=== PATIENT | male | born 1960 | race Asian ===

== ENCOUNTER 2021-01-12 07:46 | Inpatient (IN) | payer BC, SELFPAY ==
[~2021-01-12] VITALS: Ht 180.3 cm; Wt 93.0 kg
[2021-01-12 07:47] VITALS: BP 161/113
--- NOTE | 2021-01-12 07:56 | NUR ---
Dr. Martinez at pt bedside for further evaluation.
[2021-01-12] MEDS ORDERED: FAMOTIDINE 20 MG TAB PO ONE (08:00)
[2021-01-12] MEDS ORDERED: ALUMINUM HYD/MAG/SIMETHICONE 30 ML UDC PO ONE (08:00)
--- NOTE | 2021-01-12 08:01 | NUR ---
EKG AT BEDSIDE.
--- NOTE | 2021-01-12 08:02 | NUR ---
EKG done at pt bedside.
--- NOTE | 2021-01-12 08:03 | NUR ---
PATIENT PRESENTS TO ED WITH C/O EPIGASTRIC PAIN SINCE LAST NIGHT. PT STATES "IT FEELS LIKE SOMETHING IS STUCK". DENIES N/V/D; SKIN IS PINK/WARM/DRY; AAOX4 WITH EVEN AND STEADY GAIT; LUNGS CLEAR BL; HR EVEN AND REGULAR; PT DENIES ANY FEVER, CP, SOB, OR COUGH AT THIS TIME; PATIENT STATES PAIN OF 8/10 AT THIS TIME; VSS; PATIENT POSITIONED FOR COMFORT; HOB ELEVATED; BEDRAILS UP X1; BED DOWN. ER MD MADE AWARE OF PT STATUS. HX: HTN, A FIB NKA
[2021-01-12 08:21] LABS: HEMATOCRIT 44.8 % (36-52); HEMOGLOBIN 15.2 g/dL (12.0-18.0); MEAN CORPUSCULAR HEMOGLOBIN 30 pg (27-31); MEAN CORPUSCULAR HGB CONC 34 g/dL (33-37); MEAN CORPUSCULAR VOLUME 87.4 fL (80-94); PLATELET COUNT (AUTO) 259 K/uL (140-450); RED BLOOD CELL COUNT(AUTO) 5.13 MIL/uL (4.20-6.10); RED CELL DISTRIBUTION WIDTH 14.4 % (11.6-13.7); WHITE BLOOD COUNT (AUTO) 18.4 K/uL (4.8-10.8)
--- NOTE | 2021-01-12 08:49 | NUR ---
US tech at pt bedside.
[2021-01-12] MEDS ORDERED: NACL 0.9% 1,000 ML IV ONE ×2 (08:55→09:55)
[2021-01-12] MEDS ORDERED: MORPHINE SULFATE 4 MG/ML SYR IVP ONE (08:55)
[2021-01-12] MEDS ORDERED: metroNIDAZOLE 500 MG/NS PREMIX 100 ML IV ONE (08:55)
[2021-01-12 09:02] LABS: LYMPHOCYTES % (MANUAL) 7 % (20-46); MONOCYTES % (MANUAL) 6 % (5-12)
[2021-01-12 09:07] LABS: ALBUMIN 4.4 g/dL (3.4-5.0); ANION GAP 13.7 (8-16); CARBON DIOXIDE 27.5 mmol/L (21-32); POTASSIUM 4.2 mmol/L (3.5-5.1); TOTAL BILIRUBIN 1.1 mg/dL (0.0-1.0)
--- NOTE | 2021-01-12 09:09 | NUR ---
plant tech at pt bedside for blood cultures.
[2021-01-12] MEDS ORDERED: cefTRIAXone 1,000 MG VIAL ONE (09:15)
--- NOTE | 2021-01-12 09:23 | NUR ---
Pt taken to CT via rpoornima.
--- NOTE | 2021-01-12 09:38 | NUR ---
PT RETURNED FROM CT
--- NOTE | 2021-01-12 09:55 | NUR ---
PT AMBULATING TO RESTROOM
--- NOTE | 2021-01-12 09:55 | NUR ---
PARTHA SWAB WALKED TO LAB
--- NOTE | 2021-01-12 10:02 | NUR ---
UA SPECIMEN WALKED TO LAB
[2021-01-12 10:07] LABS: APPEARANCE,URINE HAZY (CLEAR); BILIRUBIN,URINE NEGATIVE (NEGATIVE); BLOOD, URINE TRACE-L (NEGATIVE); COLOR,URINE YELLOW (YELLOW); LEUKOCYTE ESTERASE ,URINE NEGATIVE (NEGATIVE); NITRITE, URINE NEGATIVE (NEGATIVE); UGLUCOSE NEGATIVE (NEGATIVE)
[2021-01-12 10:25] LABS: RBC,URINE 0-5 /HPF (0-5); WBC,URINE 0-5 /HPF (0-5)
[2021-01-12] MEDS ORDERED: METO25TE2 PO (10:35)
--- NOTE | 2021-01-12 10:57 | NUR ---
RECEIVED TELEPHONE REPORT FROM ER NURSE. PATIENT IS AAOX4 ON RA. AMBULATORY. CC WITH EPIGASTRIC PAIN. DX WITH ACUTE APPENDICITIS, A FIB WITH RVR. MORPHINE, NS BOLUS AND IV ANTIBIOTICS FLAGYL AND ROCEPHIN GIVEN IN ER. IV TO RIGHT AC 20G. SURGEON DR. BALBUENA ON CONSULT FOR POSSIBLE LAP APPENDECTOMY.
--- NOTE | 2021-01-12 10:59 | NUR ---
Gave report to FARAZ Mares for pending admission. ETA 15 minutes.
--- NOTE | 2021-01-12 11:15 | NUR ---
PATIENT ARRIVED [facility] UNIT BY [facility], VITAL SIGNS TAKEN, MRSA NARES SAMPLE COLLECTED. PATIENT IS AMBULATORY. ORIENTED PATIENT TO THE ROOM, CALL LIGHT AND HOSPITAL ENVIRONMENT. SAFETY MEASURES IN PLACE, WILL CONTINUE TO MONITOR.
[2021-01-12 11:20] VITALS: BP 132/93
[2021-01-12] MEDS ORDERED: MAG SULF 2000 MG/WATER PREMIX 50 ML IV PRN (11:20)
[2021-01-12] MEDS ORDERED: DOCUSATE SODIUM 100 MG GELCAP PO PRN (11:20)
[2021-01-12] MEDS ORDERED: DEXT 5% /NACL 0.9% 1,000 ML IV SCH (11:20)
[2021-01-12] MEDS ORDERED: ONDANSETRON 4 MG/2 ML VIAL IM/IVP PRN (11:20)
[2021-01-12] MEDS ORDERED: SODIUM PHOS / POTASSIUM PHOS 1 PKT PDR PO PRN (11:20)
[2021-01-12] MEDS ORDERED: HYDROcodone/APAP 5/325 MG 1 TAB TAB PO PRN ×2 (11:20→13:45)
[2021-01-12] MEDS ORDERED: MORPHINE SULFATE 2 MG/ML SYR IVP PRN (11:20)
[2021-01-12] MEDS ORDERED: ACETAMINOPHEN 325 MG TAB PO PRN (11:20)
[2021-01-12] MEDS ORDERED: POTASSIUM CHLORIDE 40 MEQ, LIDOCAINE MPF 1% 25 MG in NACL 0.9% 250 ML IV PRN (11:20)
--- NOTE | 2021-01-12 11:23 | NUR ---
Patient will be admitted to care of MARCY WELSH . Admited to TELE. Will go to room 105B. Belongings list completed. Report to FARAZ MARRUFO.
[2021-01-12 11:55] LABS: PHOSPHORUS 3.3 mg/dL (2.5-4.9); THYROID STIMULATING HORMONE 0.67 uIU/mL (0.34-3.74)
[2021-01-12] MEDS: metroNIDAZOLE 500 MG/NS PREMIX 100 ML IV SCH ×2 (13:00→20:51)
[2021-01-12] MEDS ORDERED: LIDOCAINE 1% 500 MG/50 ML VIAL ONE (13:04)
[2021-01-12] MEDS ORDERED: BUPIVACAINE-MPF/EPI 0.25% 30 ML VIAL INJ ONE (13:04)
--- NOTE | 2021-01-12 13:08 | NUR ---
FLAGYL NON GIVEN DUE TO LAST DOSE WAS GIVEN AT 10:29 IN ER.
[2021-01-12] MEDS ORDERED: DILTIAZEM 25 MG/5 ML VIAL IVP PRN (13:10)
[2021-01-12] MEDS ORDERED: RIVA20TA PO (13:13)
--- NOTE | 2021-01-12 13:22 | NUR ---
PATIENT PICKED UP BY THE OR NURSED TO HAVE PROCEDURE LAP APPENDECTOMY UNDER DR. BALBUENA. WILL FOLLOW UP.
[2021-01-12] MEDS ORDERED: fentaNYL citrate 0.05 MG/ML VIAL IVP PRN (13:25)
[2021-01-12] MEDS ORDERED: diphenhydrAMINE 50 MG/ML VIAL IVP PRN (13:25)
[2021-01-12] MEDS: LACTATED RINGERS 1,000 ML IV SCH ×2 (13:25→21:45)
[2021-01-12] MEDS ORDERED: MEPERIDINE 25 MG/ML SYR IVP PRN (13:25)
[2021-01-12] MEDS ORDERED: BLOOD GLUCOSE MONITORING 1 DEV DEV FS SCH (13:25)
[2021-01-12] MEDS ORDERED: ETOMIDATE 20 MG/10 ML VIAL IVP ONE ×2 (13:39→13:42)
[2021-01-12] MEDS ORDERED: DEXAMETHASONE 4 MG/ML VIAL ONE (13:42)
[2021-01-12] MEDS ORDERED: SUCCINYLCHOLINE CHLORIDE 200 MG/10 ML VIAL IVP ONE (13:42)
[2021-01-12] MEDS ORDERED: KETOROLAC 30 MG/ML VIAL ONE (13:42)
[2021-01-12] MEDS ORDERED: METOCLOPRAMIDE 10 MG/2 ML INJ VIAL ONE (13:42)
[2021-01-12] MEDS ORDERED: ROCURONIUM 50 MG/5 ML VIAL IV ONE (13:42)
[2021-01-12] MEDS ORDERED: ONDANSETRON 4 MG/2 ML VIAL ONE (13:42)
[2021-01-12] MEDS ORDERED: MEPERIDINE 25 MG/ML SYR ONE (13:42)
[2021-01-12] MEDS ORDERED: PROPOFOL 200 MG/20 ML VIAL IV ONE (13:42)
[2021-01-12] MEDS ORDERED: GLYCOPYRROLATE 0.2 MG/ML VIAL ONE (13:42)
[2021-01-12] MEDS ORDERED: SEVOFLURANE 250 ML BTL INH ONE (13:42)
[2021-01-12] MEDS ORDERED: fentaNYL citrate 0.05 MG/ML VIAL ONE (13:42)
[2021-01-12] MEDS ORDERED: NEOSTIGMINE 1:1000 10 MG/10 ML VIAL ONE (13:42)
[2021-01-12] MEDS ORDERED: HYDROmorphone 1 MG/ML AMP IVP PRN (13:45)
[2021-01-12] MEDS ORDERED: hydrALAZINE 10 MG TAB PO PRN (15:00)
--- NOTE | 2021-01-12 15:30 | NUR ---
PATIENT BACK FROM OR S/P LAP APPENDECTOMY. AWAKE WITH 2L OXYGEN VIA NC, DENIES PAIN AT THIS TIME. VITAL SIGNS TAKEN. 3 INCISION SITE AT ABD, JERROD, DERMABOND. IN STABLE CONDITION, WILL CONTINUE TO MONITOR.
[2021-01-12 16:00] VITALS: BP 101/57
[2021-01-12] MEDS: NACL 0.9% 1,000 ML IV SCH (16:05)
--- NOTE | 2021-01-12 16:25 | NUR ---
PATIENT ASLEEP IN SEMI ZHENG'S POSITION, O2 SAT 98% WITH 2L NC, NO ACUTE DISTRESS NOTED, WILL CONTINUE TO MONITOR.
--- NOTE | 2021-01-12 17:16 | NUR ---
INCENTIVE SPIROMETER PROVIDED AND DEMONSTRATED TO HOW TO PROPER USE. VERBALIZED UNDERSTANDING. WILL CONTINUE TO MONITOR.
--- NOTE | 2021-01-12 19:15 | NUR ---
ENDORSED PATIENT TO LOCOMOTIVE LUBRICATING SYSTEMS CLERK RN FOR CONTINUITY OF CARE. PATIENT IN STABLE CONDITION ON ROOM AIR. DENIES PAIN.
--- NOTE | 2021-01-12 19:16 | NUR ---
RECEIVED BEDSIDE REPORT FROM EDWARDO DAY SHIFT NURSE FOR CONTINUITY OF CARE. PT IS AWAKE AND ALERT, A&OX4. ON RA WITH BREATHING UNLABORED. ON TELE MONITORING. AMBULATORY INDEPENDENTLY. PT HAS SURGICAL INCISIONS IN THE ABDOMEN REGION WITH DERMABOND IN PLACE. DRY AND INTACT. SKIN IS WARM AND DRY. IV IS IN THE RIGHT AC 20 GAUGE RUNNING NS AT 50 ML PER HOUR PER ORDER. PT DENIES PAIN AT THIS TIME. S/P LAP APPENDECTOMY. PT IS STABLE. PLAN OF CARE DISCUSSED. UNIVERSAL AND STANDARD PRECAUTIONS IN PLACE.
[2021-01-12 20:00] VITALS: BP 100/77
--- NOTE | 2021-01-12 21:30 | NUR ---
PT IS ASLEEP. CHEST RISE AND FALL IS SYMMETRICAL. NO DISTRESS NOTED. BREATHING IS UNLABORED. IV FLUIDS ARE INFUSING ORDERED. BED IN LOWEST POSITION AND CALL LIGHT WITHIN REACH.
--- NOTE | 2021-01-12 23:25 | NUR ---
PT IS UP TO THE RESTROOM. GAIT IS STEADY. PT STATES HE WAS ABLE TO URINATE. DENIES ANY PAIN AT THIS TIME. SURGICAL INCISIONS ASSESSED AND MINIMAL DRAINAGE NOTED. SANGUINEOUS DRAINAGE WAS DRIED AND INCISIONS WERE CLOSED. PT IS STABLE AND BACK TO BED. SCD'S PLACED ON PT AND BLANKETS WERE PROVIDED FOR COMFORT.
[2021-01-13] VITALS: BP 110/71
--- NOTE | 2021-01-13 01:35 | NUR ---
ROUNDED ON PT. HE IS SLEEPING IN HIGH FOWLERS POSITION. BREATHING IS UNLABORED. NO PAIN NOTED. SCDS ARE IN PLACE. IV FLUIDS ARE INFUSING ORDERED. WILL CONTINUE TO MONITOR FOR PAIN.
--- NOTE | 2021-01-13 03:00 | NUR ---
PT IS ASLEEP AND STABLE. NO DISTRESS AT THIS TIME. BED IN LOWEST POSITION. WILL CONTINUE TO MONITOR.
[2021-01-13 04:00] VITALS: BP 101/65
[2021-01-13] MEDS: metroNIDAZOLE 500 MG/NS PREMIX 100 ML IV SCH ×2 (04:18→12:59)
[2021-01-13] MEDS: LACTATED RINGERS 1,000 ML IV SCH ×2 (04:23→14:25)
--- NOTE | 2021-01-13 04:39 | NUR ---
PT IS UP TO THE RESTROOM TO VOID. GAIT IS STEADY. NO COMPLAINTS OF PAIN. BREATHING IS UNLABORED. PT IS BACK IN BED AND PLACED SCD'S ON. BEDSIDE TABLE WITHIN REACH.
--- NOTE | 2021-01-13 06:30 | NUR ---
PT IS AWAKE AND ALERT. SPEAKING APPROPRIATELY. STATES HE HAS NOT HAD A BM OR PASSED GAS SINCE THE SURGERY. PT DENIES ANY PAIN. BREATHING IS UNLABORED. WILL CONTINUE TO MONITOR.
[2021-01-13 07:00] LABS: ANION GAP 12.4 (8-16); CARBON DIOXIDE 26.4 mmol/L (21-32); POTASSIUM 4.8 mmol/L (3.5-5.1)
[2021-01-13 07:06] LABS: MEAN CORPUSCULAR HEMOGLOBIN 30 pg (27-31); PLATELET COUNT (AUTO) 265 K/uL (140-450); WHITE BLOOD COUNT (AUTO) 16.3 K/uL (4.8-10.8)
--- NOTE | 2021-01-13 07:10 | NUR ---
ENDORSED PT TO DAY SHIFT NURSE FOR CONTINUITY OF CARE. PT IS STABLE AT THIS TIME. PLAN OF CARE DISCUSSED.
--- NOTE | 2021-01-13 07:11 | NUR ---
RECEIVED REPORT FROM RESEARCH CONSULTANT RN FOR CONTINUITY OF CARE. PATIENT ASLEEP IN BED IN SUPINE POSITION. IV TO RIGHT AC INFUSING IVF NS@ 50ML/HR. BREATHING EVEN UNLABORED ON RA. 3 INCISION SITES ON ABD JERROD, NO S/S OF INFECTION. NO ACUTE DISTRESS NOTED, SAFETY MEASURES IN PLACE, WILL CONTINUE TO MONITOR.
--- NOTE | 2021-01-13 07:39 | NUR ---
PER SREE STILL, PATIENT IS ABLE TO BE DC HOME TODAY, PRESCRIPTION IN THE CHART, PATIENT WAS INSTRUCTED TO FOLLOW UP WITH DR. BALBUENA. DR. MACIAS WAS INFORMED.
[2021-01-13 08:00] VITALS: BP 102/80
[2021-01-13] MEDS ORDERED: PANTOPRAZOLE 40 MG INJ VIAL IVP SCH (09:00)
[2021-01-13] MEDS: METOPROLOL SUCCINATE 50 MG TABER PO SCH ×2 (09:00→12:59)
[2021-01-13] MEDS ORDERED: RIVAROXABAN 10 MG TAB PO SCH (09:00)
--- NOTE | 2021-01-13 09:08 | NUR ---
SCHEDULED MEDICATIONS GIVEN, EDUCATION PROVIDED. PATIENT DENIES PAIN OR DISCOMFORT AT THIS TIME. WILL CONTINUE TO MONITOR.
[2021-01-13 10:21] LABS: BASOPHILS % (AUTO) 0.1 % (0.0-2.0); EOSINOPHILS % (AUTO) 0.1 % (0.0-4.0); HEMOGLOBIN 13.7 g/dL (12.0-18.0); LYMPHOCYTES # (AUTO) 1.3 K/uL (2.0-11.5); LYMPHOCYTES % (AUTO) 7.8 % (20.5-51.1); MEAN CORPUSCULAR HGB CONC 33 g/dL (33-37); MEAN CORPUSCULAR VOLUME 89.3 fL (80-94); MONOCYTES # (AUTO) 1.1 K/uL (0.8-1.0); MONOCYTES % (AUTO) 6.7 % (1.7-9.3); NEUTROPHILS # (AUTO) 13.9 K/uL (1.8-7.7); NEUTROPHILS % (AUTO) 85.3 % (42.2-75.2); RED BLOOD CELL COUNT(AUTO) 4.59 MIL/uL (4.20-6.10); RED CELL DISTRIBUTION WIDTH 14.3 % (11.6-13.7)
[2021-01-13 12:00] VITALS: BP 122/80
[2021-01-13] MEDS: NACL 0.9% 1,000 ML IV SCH (12:11)
--- NOTE | 2021-01-13 12:59 | NUR ---
METOPROL 25MG GIVEN FOR ELEVATED HR. EDUCATION PROVIDED. PATIENT TOLERATED WELL.
[2021-01-13] MEDS ORDERED: AMOX-999 PO (13:04)
[2021-01-13] MEDS ORDERED: METOPROLOL SUCCINATE 50 MG TABER PO SCH (13:19)
--- NOTE | 2021-01-13 13:47 | NUR ---
ANOTHER 25MG OF METOPROLOL GIVEN PER DR. SMITH'S ORDER. PATIENT'S HR IRREGULAR DUE TO A FIB.
[2021-01-13] MEDS ORDERED: DILTIAZEM 25 MG/5 ML VIAL IVP SCH (14:25)
--- NOTE | 2021-01-13 14:25 | NUR ---
PATIENT'S HR 130-140S ON TELE MONITOR. HOWEVER, PATIENT DENIES ANY DISCOMFORT. REPORTED TO DR. SIMTH. NEW ORDER OBTAINED. WILL CARRY OUT AND FOLLOW UP. PER DR. SMITH, IF PATIENT'S HR GO TO NORMAL RANGE, THEN RELEASE THE PATIENT.
--- NOTE | 2021-01-13 14:48 | NUR ---
PATIENT STATED THAT HE DID NOT NEED ANY MEDICATION, HE WANTED TO GO HOME. HE HAS MEDICATIONS AT HOME, HE HAS HAD A FIB FOR COUPLE OF YEARS, AND HE KNEW HIS HEART RATE IS IRREGULAR. HE WILL FOLLOW UP WITH HIS RETORT PRESS OPERATOR. HE INSIST TO GO HOME. RISK EXPLAINED TO THE PATIENT. PATIENT STATED THAT HE CAN TAKE HIS OWN RESPONSIBILITY. MD INFORMED AND WILL DISCHARGE THE PATIENT.
--- NOTE | 2021-01-13 15:12 | NUR ---
DISCHARGE INSTRUCTIONS PROVIDED. PATIENT VERBALIZED UNDERSTANDING. DISCHARGE PAPER WORK SIGNED. PER PATIENT, HE WILL FOLLOW UP WITH HIS MUD MILL TENDER. PATIENT'S HR RANGE FROM 89-122. PATIENT STATED THAT HE DID NOT FEEL ANY DISCOMFORT AND HE HAD AFIB FOR COUPLE OF YEARS.
--- NOTE | 2021-01-13 15:25 | NUR ---
DISCHARGE PROTOCOL FOLLOWED, IV REMOVED. WALKED PATIENT OUT OF THE HOSPITAL. ALL BELONGINGS TAKEN. PRESCRIPTIONS GIVEN. PATIENT IN STABLE CONDITION.
== END 2021-01-13 15:25 | disposition home or self-care (01) | DRG 854 ==
LOC: MED 07:46 → MTU 10:06
PROVIDERS: ADMIT Hospitalist; ATTEND Hospitalist
PROC: 0DTJ4ZZ Resection of Appendix, Percutaneous Endoscopic Approach (ICD-10-PCS; principal; 2021-01-12 13:30)
DX: A41.9 Sepsis, unspecified organism (principal); K35.80 Unspecified acute appendicitis; I10 Essential (primary) hypertension; I48.91 Unspecified atrial fibrillation; K80.20 Calculus of gallbladder without cholecystitis without obstruction; R73.9 Hyperglycemia, unspecified; R16.0 Hepatomegaly, not elsewhere classified; Z20.822 Contact with and (suspected) exposure to COVID-19
CPT/HCPCS: 36415; 76705; 80048; 80053; 81001; 83036; 83690; 83735; 84100; 84443; 84484; 85025; 87040; 87081; 87086; 96365; 96375; 99285; C9113; J0330; J0696; J1100; J1885; J2001; J2175; J2270; J2405; J2704; J2710; J2765; J3010; J3490; J7060; J7120; Q9967